=== PATIENT | male | born 1995 | race Caucasian/White ===

== ENCOUNTER 2019-01-31 22:59 | Emergency (ER) | payer SELFPAY ==
[~2019-01-31] VITALS: Ht 170.2 cm; Wt 119.3 kg
[2019-01-31 23:01] VITALS: BP 145/93
--- NOTE | 2019-01-31 23:01 | NUR ---
PT BIB [facility] FOR PREBOOK S/P TC. PLACED IN CHAIR E.
--- NOTE | 2019-01-31 23:25 | NUR ---
dr gotti assessing patient
[2019-02-01 00:28] VITALS: BP 145/93
--- NOTE | 2019-02-01 00:29 | NUR ---
Patient discharged with v/s stable. Written and verbal after care instructions given and explained. Patient verbalized understanding. [facility]orted [facility]. All questions addressed prior to discharge. Advised to follow up with PMD.
== END 2019-02-01 00:29 ==
LOC: MED 22:59
DX: S01.01XA Laceration without foreign body of scalp, initial encounter (principal); Z02.89 Encounter for other administrative examinations; V89.2XXA Person injured in unspecified motor-vehicle accident, traffic, initial encounter; Y93.89 Activity, other specified; Y92.89 Other specified places as the place of occurrence of the external cause; Y99.8 Other external cause status
CPT/HCPCS: 70450; 72125; 99284